=== PATIENT | male | born 1955 | race African-American/Black ===

== ENCOUNTER 2021-01-09 16:45 | Emergency (ER) | payer OTHER, BC ==
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
--- NOTE | 2021-01-09 16:55 | PCM.EKG ---
#1 Interpretation EKG Date: 01/09/21 Time: 16:46 Rhythm: NSR Rate (Beats/Min): 75 [place]: Normal P-Wave: Present QRS: Normal ST-T: Normal QT: Normal Comparison: NA - No Prior EKG EKG Interpretation Comments: Sinus Rhythm with LVH
[2021-01-09] MEDS ORDERED: Lactated Ringers 1,000 ML IV SCH (17:00)
[2021-01-09] MEDS ORDERED: Labetalol 100 MG/20 ML MDV IVPUSH ONE ×2 (17:00→18:28)
[2021-01-09] MEDS ORDERED: Labetalol 100 MG/20 ML MDV ONE (17:02)
[2021-01-09 17:34] LABS: BLOOD UREA NITROGEN,BUN 16 mg/dL (7.0-18.0); CHLORIDE,CL 102 mmol/L (98-107); GLUCOSE RANDOM 104 mg/dL (74-106); POTASSIUM,K 3.8 mmol/L (3.5-5.1); SODIUM,NA 139 mmol/L (136-148)
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
[2021-01-09] MEDS ORDERED: Losartan 50 MG Tab PO ONE (18:38)
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
[2021-01-09] MEDS ORDERED: Lactated Ringers 1,000 ML IV STA (18:53)
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
[2021-01-09] MEDS ORDERED: Iopamidol 755 MG/ML 500 ML Multipack Bottle IVPUSH ONE (19:16)
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
== END 2021-01-09 22:05 | disposition home or self-care (01) ==
LOC: MW.ED 16:45
DX: S22.20XA Unspecified fracture of sternum, initial encounter for closed fracture (principal); I10 Essential (primary) hypertension; V89.2XXA Person injured in unspecified motor-vehicle accident, traffic, initial encounter; Y92.410 Unspecified street and highway as the place of occurrence of the external cause
CPT/HCPCS: 36415; 70450; 71045; 71275; 72125; 72128; 72131; 72170; 74174; 80053; 80307; 81001; 82550; 83605; 83735; 84443; 84484; 85025; 85610; 93005; 96374; 96376; 99285; A9270; J3490; J7120; Q9967

== ENCOUNTER 2021-11-22 02:17 | Emergency (ER) | payer SELFPAY ==
[2021-11-22] MEDS ORDERED: Iopamidol 755 Mg/ML 100 ML Bottle IV ONE (02:18)
[2021-11-22] MEDS ORDERED: Lactated Ringers 1,000 ML IV ONE (14:45)
[2021-11-22] MEDS ORDERED: Ondansetron 4 MG/2 ML SDV IVPUSH ONE (14:45)
== END 2021-11-22 18:50 | disposition home or self-care (01) ==
LOC: MW.ED 02:17
DX: K52.9 Noninfective gastroenteritis and colitis, unspecified (principal)
CPT/HCPCS: 74177; 96361; 96374; 99284; J2405; J7120; Q9967

== ENCOUNTER 2022-01-25 09:26 | Emergency (ER) | payer SELFPAY ==
[2022-01-25] MEDS ORDERED: Lidocaine 1% 5 ML VIAL INJECT ONE (13:05)
== END 2022-01-25 14:14 | disposition home or self-care (01) ==
LOC: MW.ED 09:26
DX: L02.01 Cutaneous abscess of face (principal)
CPT/HCPCS: 10060; 99282-25

== ENCOUNTER 2023-01-21 20:38 | Observation (INO) | payer BC ==
[2023-01-21] MEDS ORDERED: Sodium Chloride 0.9% 1,000 ML IV ONE (20:56)
[2023-01-21] MEDS ORDERED: Sodium Chloride 0.9% 10 ML Syringe FLUSH PRN (20:56)
[2023-01-21] MEDS ORDERED: Sodium Chloride 0.9% 2.5 ML Syringe FLUSH PRN (20:56)
[2023-01-21 21:27] LABS: BASE EXCESS VENOUS 1.2 (-2.0-3.0); BASOPHILS ABSOLUTE AUTO 0.04 K/uL (0.00-0.20); BASOPHILS PERCENT AUTO 0.8 % (0.0-1.0); EOSINOPHILS ABSOLUTE AUTO 0.23 K/uL (0.00-0.45); EOSINOPHILS PERCENT AUTO 4.8 % (0.0-6.0); HEMATOCRIT 41.1 % (42.0-52.0); HEMOGLOBIN 14.5 g/dL (14.0-18.0); IMMATURE GRAN ABSOLUTE AUTO 0.01 K/uL (0.00-0.05); IMMATURE GRAN PERCENT AUTO 0.2 % (0.0-0.4); LYMPHOCYTES ABSOLUTE AUTO 2.13 K/uL (1.00-4.80); LYMPHOCYTES PERCENT AUTO 44.8 % (24.0-44.0); MEAN CORPUSCULAR HEMOGLOBIN 28.3 pg (28.0-32.0); MEAN CORPUSCULAR HGB CONC 35.3 g/dL (32.0-36.0); MEAN CORPUSCULAR VOLUME 80.3 fL (83.0-99.0); MEAN PLATELET VOLUME 11.1 fL (9.4-12.4); MONOCYTES ABSOLUTE AUTO 0.63 K/uL (0.00-0.80); MONOCYTES PERCENT AUTO 13.3 % (0.0-8.0); NEUTROPHILS ABSOLUTE AUTO 1.71 K/uL (1.80-7.70); NEUTROPHILS PERCENT AUTO 36.1 % (41.0-71.0); PH,VENOUS 7.41 (7.31-7.41); PLATELET COUNT,PLT 258 K/uL (150-400); RED BLOOD CELL COUNT 5.12 M/uL (4.52-5.90); WHITE BLOOD CELL COUNT,WBC 4.75 K/uL (3.9-11.3)
[2023-01-21 21:58] LABS: HEMOGLOBIN A1C 6.2 %
[2023-01-21 22:09] LABS: A/G RATIO 0.7 (0.9-1.6); ALBUMIN 3.3 g/dL (3.4-5.0); BILIRUBIN TOTAL 0.6 mg/dL (0.2-1.0); CALCIUM 8.7 mg/dL (8.5-10.1); CARBON DIOXIDE,CO2 27.5 mmol/L (21.0-32.0); CREATININE 1.6 mg/dL (0.8-1.3); EST CRCL DRUG DOSING (CG) 50.52 mL/min; POTASSIUM,K 2.9 mmol/L (3.5-5.1); PROTEIN TOTAL,TP 8.3 g/dL (6.4-8.2); TSH ULTRASENSITIVE 2.21 uIU/mL (0.36-3.74)
[2023-01-21] MEDS ORDERED: Lactated Ringers 1,000 ML IV ONE (22:14)
[2023-01-21] MEDS ORDERED: Potassium Chloride 20 MEQ Tab.ER PO ONE (22:14)
[2023-01-21 22:52] LABS: APPEARANCE,URINE CLEAR; BILIRUBIN,URINE NEGATIVE (NEGATIVE); COLOR,URINE YELLOW; GLUCOSE,URINE NEGATIVE (NEGATIVE); KETONES,URINE NEGATIVE (NEGATIVE); LEUKOCYTE ESTERASE,URINE NEGATIVE (NEGATIVE); NITRITE,URINE NEGATIVE (NEGATIVE); OCCULT BLOOD,URINE NEGATIVE (NEGATIVE); PROTEIN,URINE NEGATIVE (NEGATIVE); UROBILINOGEN,URINE 0.2 EU/dL (<2.0)
[2023-01-22 00:33] LABS: CALCIUM 8.2 mg/dL (8.5-10.1); CARBON DIOXIDE,CO2 29.3 mmol/L (21.0-32.0); CREATININE 1.4 mg/dL (0.8-1.3); EST CRCL DRUG DOSING (CG) 57.74 mL/min; POTASSIUM,K 2.9 mmol/L (3.5-5.1)
[2023-01-22] MEDS ORDERED: Potassium Chloride 20 MEQ in Premix Bag 1 BAG IV ONE ×2 (01:22→03:21)
[2023-01-22] MEDS ORDERED: Ondansetron 4 MG/2 ML SDV IVPUSH PRN (07:22)
[2023-01-22] MEDS ORDERED: Acetaminophen 325 MG Tab PO PRN (07:22)
[2023-01-22] MEDS: Losartan 50 MG Tab PO SCH (08:03)
[2023-01-22] MEDS: Sodium Chloride 0.9% 1,000 ML IV SCH ×2 (08:03→15:47)
[2023-01-22 08:44] LABS: CALCIUM 8.8 mg/dL (8.5-10.1); CREATININE 1.3 mg/dL (0.8-1.3); EST CRCL DRUG DOSING (CG) 58.49 mL/min; POTASSIUM,K 3.5 mmol/L (3.5-5.1)
[2023-01-22 13:06] LABS: CORONAVIRUS COVID-19 NAA NEGATIVE (NEGATIVE); INFLUENZA A NAA NEGATIVE (NEGATIVE); INFLUENZA B NAA NEGATIVE (NEGATIVE)
[2023-01-22] MEDS ORDERED: atorvaSTATin 20 MG Tab PO SCH (21:00)
[2023-01-22] MEDS ORDERED: amLODIPine 5 MG Tab PO SCH (21:00)
[2023-01-23] MEDS: Sodium Chloride 0.9% 1,000 ML IV SCH ×2 (00:03→07:06)
[2023-01-23 06:41] LABS: BASOPHILS ABSOLUTE AUTO 0.05 K/uL (0.00-0.20); EOSINOPHILS ABSOLUTE AUTO 0.24 K/uL (0.00-0.45); EOSINOPHILS PERCENT AUTO 4.9 % (0.0-6.0); HEMATOCRIT 42.9 % (42.0-52.0); HEMOGLOBIN 15.1 g/dL (14.0-18.0); LYMPHOCYTES ABSOLUTE AUTO 1.96 K/uL (1.00-4.80); LYMPHOCYTES PERCENT AUTO 40.1 % (24.0-44.0); MEAN CORPUSCULAR HEMOGLOBIN 28.4 pg (28.0-32.0); MEAN CORPUSCULAR HGB CONC 35.2 g/dL (32.0-36.0); MEAN CORPUSCULAR VOLUME 80.8 fL (83.0-99.0); MEAN PLATELET VOLUME 10.6 fL (9.4-12.4); MONOCYTES ABSOLUTE AUTO 0.57 K/uL (0.00-0.80); MONOCYTES PERCENT AUTO 11.7 % (0.0-8.0); NEUTROPHILS ABSOLUTE AUTO 2.07 K/uL (1.80-7.70); NEUTROPHILS PERCENT AUTO 42.3 % (41.0-71.0); PLATELET COUNT,PLT 249 K/uL (150-400); RED BLOOD CELL COUNT 5.31 M/uL (4.52-5.90); WHITE BLOOD CELL COUNT,WBC 4.89 K/uL (3.9-11.3)
[2023-01-23 07:06] LABS: CALCIUM 8.6 mg/dL (8.5-10.1); CARBON DIOXIDE,CO2 28.8 mmol/L (21.0-32.0); CREATININE 1.1 mg/dL (0.8-1.3); EST CRCL DRUG DOSING (CG) 69.13 mL/min; POTASSIUM,K 3.8 mmol/L (3.5-5.1)
[2023-01-23] MEDS ORDERED: Cyclobenzaprine 10 MG Tab PO PRN (07:24)
[2023-01-23] MEDS: Losartan 50 MG Tab PO SCH (09:05)
== END 2023-01-23 11:40 | disposition home or self-care (01) ==
LOC: MW.ED 20:38 → MW.MS 01-22 01:24
PROVIDERS: ADMIT Internal Medicine; ATTEND Internal Medicine
DX: M62.82 Rhabdomyolysis (principal); R25.2 Cramp and spasm; I10 Essential (primary) hypertension; E87.6 Hypokalemia; E78.00 Pure hypercholesterolemia, unspecified; N17.9 Acute kidney failure, unspecified; I49.3 Ventricular premature depolarization; Z86.73 Personal history of transient ischemic attack (TIA), and cerebral infarction without residual deficits; Z79.899 Other long term (current) drug therapy
CPT/HCPCS: 0240U; 36415; 80048; 80053; 81003; 82009; 82550; 82803; 82947; 83036; 83690; 83735; 84443; 84484; 85025; 93005; 93970; 96361; 96365; 96366; 99285; A9270; G0378; J3480; J3490; J7030; J7120; 93010; 96374; 99223; 99239; 99283